=== PATIENT | male | born 1950 | race Caucasian/White ===

== ENCOUNTER 2019-09-30 11:32 | Outpatient (CLI) | payer MEDICARE, BC ==
[~2019-09-30 11:32] MED LIST: AMBIEN10 MG ORAL; GLYXAMBI 25 MG1 EACH PO; LEVOCETIRIZINE D5 MG ORAL; METFORMIN HCL500 M4 ORAL; RANITIDINE HCL150 M1 ORAL; TRIBENZOR 40-11 EAC1 ORAL; UROXATRAL10 M2 PO; ZORVOLEX35 MG PO
== END 2019-09-30 13:32 | disposition home or self-care (01) ==
LOC: ULS 11:32
DX: I82.402 Acute embolism and thrombosis of unspecified deep veins of left lower extremity (principal)
CPT/HCPCS: 93971

== ENCOUNTER 2019-12-29 14:30 | Outpatient (RCR) | payer MEDICARE, BC | END 2020-01-21 | disposition home or self-care (01) | LOC: WCC 14:30 | DX: L98.492 Non-pressure chronic ulcer of skin of other sites with fat layer exposed (principal); L02.215 Cutaneous abscess of perineum; E11.622 Type 2 diabetes mellitus with other skin ulcer; E11.9 Type 2 diabetes mellitus without complications; I11.9 Hypertensive heart disease without heart failure; Z79.899 Other long term (current) drug therapy; Z79.84 Long term (current) use of oral hypoglycemic drugs; Z88.0 Allergy status to penicillin; Z88.6 Allergy status to analgesic agent | CPT/HCPCS: 11042; 71046; 82962; 93005; G0463 ==

== ENCOUNTER 2019-12-29 15:35 | Outpatient (CLI) | payer MEDICARE, BC ==
--- NOTE | 2019-12-29 16:37 | Diagnostic Imaging Report ---
Indication: Dyspnea Comparison: 07/13/2018 2 views of the chest obtained. Findings: Cardiomediastinal silhouette and pulmonary vascularity are within normal limits for age. The diaphragmatic contour is smooth and costophrenic angles are sharp. No pleural effusions are identified. The bones are unremarkable. Impression: No acute disease
== END 2019-12-29 17:35 | disposition home or self-care (01) ==
LOC: RAD 15:35
DX: R06.00 Dyspnea, unspecified (principal); R05 Cough
CPT/HCPCS: 71046; 93005

== ENCOUNTER 2020-01-23 10:33 | Outpatient (RCR) | payer MEDICARE, BC | END 2020-02-21 | disposition home or self-care (01) | LOC: WCC 10:33 | DX: L98.492 Non-pressure chronic ulcer of skin of other sites with fat layer exposed (principal); L02.214 Cutaneous abscess of groin; E11.622 Type 2 diabetes mellitus with other skin ulcer; Z88.0 Allergy status to penicillin; Z88.6 Allergy status to analgesic agent; Z91.013 Allergy to seafood; I11.9 Hypertensive heart disease without heart failure; E66.9 Obesity, unspecified; Z79.899 Other long term (current) drug therapy | CPT/HCPCS: G0463 ×2 ==